=== PATIENT | female | born 1985 | race Caucasian/White ===

== ENCOUNTER 2017-03-24 08:15 | Emergency (ER) | payer MEDICAID ==
[2017-03-24 08:52] VITALS: BP 119/83; PULSE 93; RESP 18; TEMP 98.1; O2SAT 96
--- NOTE | 2017-03-24 09:24 | UCPHY ---
H & P Time Seen by Provider: 03/24/17 09:13 Patient Type: Established HPI/ROS: Patient has sinus pressure in the maxillary region associated with nasal congestion, postnasal drip, and sneezing. She had onset of mild seasonal allergies symptoms with rhinitis last week and then since Wednesday-over the past 3 days she has developed the maxillary sinus pressure associated with this 5/10 intensity. She has slight worsening of her maxillary discomfort when she bends forward. No other exacerbating factors noted. ROS: No fevers or chills. No other constitutional symptoms. HEENT: No sore throat. No ear pain. No other complaints. Pulmonary: Mild occasional dry cough over the past 24 hours. No wheezing or shortness of breath. Skin: No rash. Neuro: No confusion. 7 point ROS is otherwise negative. Past Medical/Surgical History: Seasonal allergies Mild asthma Smoking Status: Never smoked Physical Exam: Physical Exam Vital signs are normal. General: No acute distress HEENT: Nose: Clear discharge bilaterally. No significant swelling of the turbinates. There is no purulent discharge. Mild bilateral maxillary sinus tenderness to percussion. Ears: External canals and tympanic membranes are clear with no erythema or abnormal findings bilaterally. Oropharynx: No erythema or exudates. No dysphonia. No drooling or stridor. Eyes: Pupils equal and react to light. Extraocular motions are intact. Neck: Supple with no meningismus. No lymphadenopathy Lungs: Clear to auscultation bilaterally with no rales, rhonchi or wheeze. No respiratory distress. Cardiac: Regular rate and rhythm with no murmur gallop or rub Skin: No rash or pallor. Neuro: Alert with no focal deficits noted. Initial differential diagnosis: Seasonal allergies, viral URI, rhinosinusitis, doubt bacterial sinusitis Constitutional: Initial Vital Signs Temperature (C) 36.7 C 03/24/17 08:25 Heart Rate 93 03/24/17 08:25 Respiratory Rate 18 03/24/17 08:25 Blood Pressure 119/83 H 03/24/17 08:25 O2 Sat (%) 96 03/24/17 08:25 O2 Delivery Mode Room Air Allergies/Adverse Reactions: aspirin Allergy (Verified 03/24/17 08:32) codeine Allergy (Verified 03/24/17 08:32) Home Medications: Medication Instructions Recorded Fluticasone Nasal [Flonase Nasal 2 sprays NASAL DAILY #1 mdi 03/24/17 [place]] Loratadine 03/24/17 Medical Decision Making ED Course/Re-evaluation: I discussed seasonal allergies and rhinosinusitis this patient. She appears clinically well without evidence of RUBBER ENGRAVER infection other concerning findings. Although she has history of asthma she has absolutely clear lungs currently with no evidence of lower respiratory infection, bronchospasm or other Departure - Departure Disposition: Home, Routine, Self-Care Clinical Impression: Acute rhinosinusitis Seasonal allergies Qualifiers: Allergic rhinitis trigger: unspecified Qualified Code(s): J30.2 - Other seasonal allergic rhinitis Condition: Good Instructions: Rhinosinusitis (ED) Additional Instructions: Diagnosis: Rhinosinusitis 2. Seasonal allergies Plan: Humidifier Flonase steroid nasal spray Afrin nasal spray for 2 days in addition if needed and stop the Afrin but continue Flonase Continue antihistamines Ibuprofen-400 mg per 6 hours as needed for swelling and pain Guaifenesin [id number] Return if he develops fevers or significant worsening of symptoms despite the treatment plan. Follow up with primary care physician for any ongoing symptoms. Referrals: Courtney Shrestha CNP [Primary Care Provider] - As per Instructions Prescriptions: Fluticasone Nasal [Flonase Nasal Many] 2 sprays NASAL DAILY #1 mdi - PQRS PQRS Measurement: NA
== END 2017-03-24 09:34 | disposition home or self-care (01) ==
LOC: CED 08:15
DX: J01.90 Acute sinusitis, unspecified (principal); J30.2 Other seasonal allergic rhinitis
CPT/HCPCS: 99214-PO; G0463-PO

== ENCOUNTER 2017-05-19 17:35 | Observation (INO) | payer MEDICAID ==
--- NOTE | 2017-05-19 17:53 | CPEKG ---
Heart Rate: 87 RR Interval: 690 P-R Interval: 128 QRSD Interval: 84 QT Interval: 340 QTC Interval: 409 P [place]: 83 QRS [place]: 58 T Wave [place]: 39 EKG Severity - BORDERLINE ECG - EKG Impression: SINUS RHYTHM EKG Impression: BORDERLINE T ABNORMALITIES, ANTERIOR LEADS Electronically Signed By: Loy Bueno 19-May-2017 18:31:13
[2017-05-19] MEDS ORDERED: MAG HYDROX/AL HYDROX/SIMETH 30 ML UDCUP PO ONE (18:07)
[2017-05-19] MEDS ORDERED: HYOSCYAMINE SULFATE 0.125 MG TAB PO ONE (18:07)
[2017-05-19 18:09] LABS: % IMMATURE GRANULYOCYTES 0.3 % (0.0-1.1); ABSOLUTE IMMATURE GRANULOCYTES 0.03 10^3/uL (0.00-0.10); ADD DIFF? NO; ADD MORPH? NO; ADD SCAN? NO; ATYPICAL LYMPHOCYTE FLAG 10 (0-99); FRAGMENT RBC FLAG 0 (0-99); HEMATOCRIT 41.6 % (38.0-47.0); HEMOGLOBIN 14.4 g/dL (12.6-16.3); LEFT SHIFT FLG 0 (0-99); LIPEMIA HEMOLYSIS FLAG 90 (0-99); MEAN CELL HEMOGLOBIN 29.7 pg (27.9-34.1); MEAN CELL HEMOGLOBIN CONCENTR. 34.6 g/dL (32.4-36.7); MEAN CELL VOLUME 85.8 fL (81.5-99.8); MEAN PLATELET VOLUME 9.4 fL (8.7-11.7); PLATELET CLUMPS FLAG 0 (0-99); PLATELET COUNT 286 10^3/uL (150-400); RED BLOOD CELL COUNT 4.85 10^6/uL (4.18-5.33); RED CELL DISTRIBUTION WIDTH 12.7 % (11.5-15.2)
[2017-05-19 18:18] LABS: INR 1.15 (0.83-1.16); PROTIME(PATIENT) 14.4 SEC (12.0-15.0)
[2017-05-19 18:19] LABS: APTT 27.2 SEC (23.0-38.0)
[2017-05-19 18:20] LABS: ANION GAP 18 mEq/L (8-16); CALCIUM 9.2 mg/dL (8.5-10.4); CARBON DIOXIDE 20 mEq/l (22-31); CHLORIDE 103 mEq/L (97-110); CREATININE 0.7 mg/dL (0.6-1.0); GLOMERULAR FILTRATION RATE > 60; GLUCOSE 84 mg/dL (70-100); POTASSIUM 3.5 mEq/L (3.5-5.2); SODIUM 141 mEq/L (134-144)
--- NOTE | 2017-05-19 18:26 | EDPHY ---
H & P Stated Complaint: chest pain Time Seen by Provider: 05/19/17 17:54 HPI/ROS: This patient reports chest pain that started last night around 5:30 p.m.. She describes the location as substernal and the nature the pain as tightness and aching. She thought it might be acid reflux last night and she reports a restless night of sleep with intermittent discomfort that would last for about 5 minutes at a time in the chest. She also had some brief left arm tingling intermittently and mild dyspnea. She felt somewhat improved this morning but around mid day today she had recurrence of the chest pain again lasting for about 5 minutes at a time with peak intensity of 6/10. He does radiate to her left neck and shoulder today. On arrival it is 3/10 to 5/10. She tried her asthma albuterol inhaler thinking she might be having an asthma exacerbation and had no relief of the chest discomfort with that. She also relates that is not feel like any asthma exacerbations she has had in the past. She does note a pleuritic component that the pain worsens with a deep breath becomes more sharp in nature. She does not appreciate any positional component to the discomfort in terms of exacerbating or alleviating factors. She has persistent mild dyspnea today.She reports associated calf pain bilaterally "like a got off the stair master but have not been ". The calf pain is been present for the past 2 days She states this is an ache in the left leg more than the right. ROS: Constitutional: She reports mild fatigue. No fevers. HEENT: She has seasonal allergies for common for her that are mild currently. No other HEENT complaints. No URIs over the past month. Pulmonary: No cough. No respiratory distress. Cardiovascular: No heart palpitations. No lightheadedness. Otherwise negative besides with mentioned in HPI GI: She has some nausea since the onset of her symptoms but no vomiting. She also reports mild anorexia. She did not have lunch due to this. : No urinary symptoms. Last menstrual. Normal timing. Integumentary: No skin rash Endocrine: No symptoms Neuro: Some intermittent tingling left arm. No other numbness tingling or focal weakness. No headache. Complete ROS is otherwise negative. Source: Patient Exam Limitations: No limitations - Personal History LMP (Females 10-55): Unknown Current Tetanus/Diphtheria Vaccine: Yes Current Tetanus Diphtheria and Acellular Pertussis (TDAP): Yes - Medical/Surgical History Hx Asthma: Yes Hx Chronic Respiratory Disease: No Hx Diabetes: No Hx Cardiac Disease: No Hx Renal Disease: No Hx Cirrhosis: No Hx Alcoholism: No Hx HIV/AIDS: No Hx Splenectomy or Spleen Trauma: No Other PMH: ASTHMA, acid reflux, basal cell sarcoma - Family History Significant Family History: No pertinent family hx - Social History Smoking Status: Never smoked Alcohol Use: Rarely Drug Use: None Additional Social History: 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 - Physical Exam Exam: General Appearance: Alert, no distress. Eyes: Pupils equal and round no pallor or injection. ENT, Mouth: Mucous membranes moist. Respiratory: There are no retractions, lungs are clear to auscultation. She has mild anterior chest wall tenderness Left parasternal location.but this does not entirely reproduces her symptoms. Cardiovascular: Regular rate and rhythm No murmur gallop or rub is appreciated. She does have mild left calf more than right calf tenderness bilaterally but no swelling. 2+ dorsalis pedis and posterior tibialis pulses are preserved bilaterally. Gastrointestinal: Abdomen is soft and nontender, no masses, bowel sounds normal. Neurological: GCS 15 with no focal sensory or motor deficits. Skin: Warm and dry, no rashes. Musculoskeletal: Neck is supple nontender. Extremities are symmetrical, full range of motion. Psychiatric: Mild anxiety but otherwise mood and affect are normal. DIFFERENTIAL DIAGNOSIS: After history and physical exam differential diagnosis was considered for GERD with esophageal spasm, PE, pericarditis, pneumonia, pleurisy, pneumothorax, myocarditis, asthma exacerbation with viral bronchitis Constitutional: Initial Vital Signs Temperature (C) 36.9 C 05/19/17 18:00 Heart Rate 99 05/19/17 18:00 Respiratory Rate 24 H 05/19/17 18:00 Blood Pressure 119/81 H 05/19/17 18:00 O2 Sat (%) 98 05/19/17 18:00 O2 Delivery Mode Room Air Allergies/Adverse Reactions: aspirin Allergy (Verified 03/24/17 08:32) codeine Allergy (Verified 03/24/17 08:32) Home Medications: Medication Instructions Recorded Fluticasone Nasal [Flonase Nasal 2 sprays NASAL DAILY #1 mdi 03/24/17 [place]] Loratadine 03/24/17 Albuterol 05/19/17 Medical Decision Making - Diagnostics EKG Interpretation: 12 lead EKG performed shortly after arrival indication chest pain rule out evidence of right heart strain or other Performed at 5:51 p.m. Sinus rhythm at 87 Intervals: Normal throughout [place]: Normal throughout ST segments notable for mild ST depression in V3 somewhat in the lateral leads as well. Overall assessment: Normal sinus rhythm with borderline anterior T-wave abnormalities. Cannot rule out ischemia, myocarditis or other abnormalities. Please refer to trace master for complete read. Repeat EKG performed at 7:22 p.m. indication persistent chest pain, rule out interval change Sinus rhythm at 86 Intervals: Normal throughout [place]: Normal throughout ST segments: Patient with persistent anterolateral T-wave abnormalities - OVerall assessment: normal sinus rhythm with persistent anterolateral T-wave abnormalitiescannot rule out pericarditis or ischemia verses albuterol affect / medication effect Imaging Results: Imaging Impressions Chest X-Ray 05/19/17 18:34 Impression: Query mild airways disease with no superimposed acute abnormality identified. Chest/Thorax CTA 05/19/17 19:38 Impression: 1. Normal CT angiogram of the chest. Findings discussed with Loy Bueno M.D. At 20:32 hour, 05/19/2017. I also reviewed the CT angiogram appreciate no obvious abnormalities. Discuss the CT with Dr. Kline -radiologist to officially read the CT angio. Chest x-ray: I read this as mild airway disease otherwise normal. Imaging: Discussed imaging studies w/ director talent Radiologist, I viewed and interpreted images myself ED Course/Re-evaluation: Given her aspirin allergy history of asthma, we held on aspirin. I will hold initially on Plavix as well given her young age and lack of risk factors to suggest coronary disease. She is given a GI cocktail. Her peak flow is 300. She believes her baseline peak flows typically 350. Her predicted peak flow would be 475. given her EKG is mildly abnormal, will hold on further nebs until her troponin returns. Patient is treated with a DuoNeb without improvement in her dyspnea or chest pain. I spoke with Andrea Barroso-home delivery driver on-call about her ongoing symptoms at 7: 40 p.m.. The patient has persistent 5/10 pain, diaphoresis with pain radiating to her back and repeat EKG shows persistent anterior abnormalities. Given these findings will proceed with CT angio chest to evaluate for potential pericardial effusion, aortic dissection or other abnormalities. The patient declines any further analgesia at this time I discussed the patient's normal appearing CT angio with her. She still has persistent 5/10 discomfort, fatigue, nausea and dyspnea. She reports that her pain still radiates to her back. Given her ongoing symptoms as per discussion with Dr. Barroso we will admit her to [facility] for observation further treatment and echocardiogram in the morning. I spoke with Dr. Barroso again after the normal CT angio chest and also spoke with our hospitalist Dr. Sanchez accepts patient for transfer to PCU with plan for serial troponins, echocardiogram in the morning, neb treatments for asthma if needed. Patient is treated with another 0.5 mg dose of IV Ativan for anxiety and as 0.2 mg IV dose of Dilaudid. Xopenex neb is administered. Counseled regarding plan for admission. Patient is agreeable to plan. At 2130 the patient reports mild improvement of her chest pain with Dilaudid. She still has a a pleuritic type pain with a deep breath and still has mild dyspnea and feeling of generalized weakness. Her systolic pressure remains 85- 90. He review of a previous visit reveal blood pressure is around 100-105. Patient is given at Solu-Medrol dose 125 mg IV for asthma and possible pleurisy at 9:35 a.m.. At 9:40 p.m. EMS is here, report is given, her repeat peak flow remains 300. Discussion: Patient with chest pain, fatigue, mild lightheadedness, no wheezing or hypoxia but mildly low peak flow with a negative initial workup that ruled out PE, pneumonia, aortic dissection, pericardial effusion OH. this patient may simply have pleurisy with a background of mild stable asthma, but with an abnormal EKG and mild hypotension she warrants admission for further workup and evaluation to rule out structural cardiac abnormalities, infectious etiology or other. - Data Points Laboratory Results: Laboratory Results 05/19/17 17:50 05/19/17 17:50 05/19/17 05/19/17 05/19/17 17:50 17:50 17:50 WBC RBC Hgb Hct 41.6 % % (38.0-47.0) MCV MCH MCHC RDW Plt Count MPV Neut % (Auto) Lymph % (Auto) [place] % (Auto) Eos % (Auto) Baso % (Auto) Nucleat RBC Rel Count Absolute Neuts (auto) Absolute Lymphs (auto) Absolute Monos (auto) Absolute Eos (auto) Absolute Basos (auto) Absolute Nucleated RBC Immature Gran % Immature Gran # ESR 8 MM/HR MM/HR (0-20) PT INR APTT D-Dimer Sodium 141 mEq/L mEq/L (134-144) Potassium 3.5 mEq/L mEq/L (3.5-5.2) Chloride 103 mEq/L mEq/L (97-110) Carbon Dioxide 20 mEq/l L mEq/l (22-31) Anion Gap 18 mEq/L H mEq/L (8-16) BUN 15 mg/dL mg/dL (7-23) Creatinine 0.7 mg/dL mg/dL (0.6-1.0) Estimated GFR > 60 Glucose 84 mg/dL mg/dL (70-100) Calcium 9.2 mg/dL mg/dL (8.5-10.4) Troponin I < 0.012 ng/mL ng/mL (0-0.034) NT-Pro-B Natriuret Pep 54 pg/mL pg/mL (0-125) 05/19/17 05/19/17 17:50 17:50 WBC 10.88 10^3/uL H 10^3/uL (3.80-9.50) RBC 4.85 10^6/uL 10^6/uL (4.18-5.33) Hgb 14.4 g/dL g/dL (12.6-16.3) Hct 41.6 % % (38.0-47.0) MCV 85.8 fL fL (81.5-99.8) MCH 29.7 pg pg (27.9-34.1) MCHC 34.6 g/dL g/dL (32.4-36.7) RDW 12.7 % % (11.5-15.2) Plt Count 286 10^3/uL 10^3/uL (150-400) MPV 9.4 fL fL (8.7-11.7) Neut % (Auto) 70.0 % % (39.3-74.2) Lymph % (Auto) 24.1 % % (15.0-45.0) Monona % (Auto) 4.9 % % (4.5-13.0) Eos % (Auto) 0.3 % L % (0.6-7.6) Baso % (Auto) 0.4 % % (0.3-1.7) Nucleat RBC Rel Count 0.0 % % (0.0-0.2) Absolute Neuts (auto) 7.63 10^3/uL H 10^3/uL (1.70-6.50) Absolute Lymphs (auto) 2.62 10^3/uL 10^3/uL (1.00-3.00) Absolute Monos (auto) 0.53 10^3/uL 10^3/uL (0.30-0.80) Absolute Eos (auto) 0.03 10^3/uL 10^3/uL (0.03-0.40) Absolute Basos (auto) 0.04 10^3/uL 10^3/uL (0.02-0.10) Absolute Nucleated RBC 0.00 10^3/uL 10^3/uL (0-0.01) Immature Gran % 0.3 % % (0.0-1.1) Immature Gran # 0.03 10^3/uL 10^3/uL (0.00-0.10) ESR PT 14.4 SEC SEC (12.0-15.0) INR 1.15 (0.83-1.16) APTT 27.2 SEC SEC (23.0-38.0) D-Dimer < 0.27 ug/mLFEU ug/mLFEU (0.00-0.50) Sodium Potassium Chloride Carbon Dioxide Anion Gap BUN Creatinine Estimated GFR Glucose Calcium Troponin I NT-Pro-B Natriuret Pep Medications Given: Discontinued Medications Acetaminophen (Tylenol) 975 mg PO EDNOW ONE Stop: 05/19/17 18:54 Last Admin: 05/19/17 19:08 Dose: 975 mg Al Hydroxide/Mg Hydroxide (Maalox Susp) 30 ml PO EDNOW ONE Stop: 05/19/17 18:08 Last Admin: 05/19/17 18:20 Dose: 30 ml Albuterol/Ipratropium (Duoneb) 3 ml IH EDNOW ONE Stop: 05/19/17 18:52 Last Admin: 05/19/17 18:59 Dose: 3 ml Clopidogrel Bisulfate (Plavix) 75 mg PO EDNOW ONE Stop: 05/19/17 19:31 Last Admin: 05/19/17 19:40 Dose: 75 mg Hydromorphone HCl (Dilaudid) 0.2 mg IVP EDNOW ONE Stop: 05/19/17 20:49 Last Admin: 05/19/17 21:09 Dose: 0.2 mg Hyoscyamine Sulfate (Levsin, Hyomax-Sl) 0.125 mg PO EDNOW ONE Stop: 05/19/17 18:08 Last Admin: 05/19/17 18:20 Dose: 0.125 mg Sodium Chloride (Ns) 1,000 mls @ 0 mls/hr IV ONCE ONE; Wide Open PRN Reason: Protocol Stop: 05/19/17 18:34 Last Admin: 05/19/17 18:43 Dose: 1,000 mls Sodium Chloride (Ns) 1,000 mls @ 3,000 mls/hr IV ONCE ONE Stop: 05/19/17 19:52 Last Admin: 05/19/17 19:36 Dose: 1,000 mls Levalbuterol (Xopenex 1.25mg Neb) 1.25 mg IH EDNOW ONE Stop: 05/19/17 20:35 Last Admin: 05/19/17 21:10 Dose: 1.25 mg Lorazepam (Ativan Injection) 0.5 mg IVP EDNOW ONE Stop: 05/19/17 18:52 Last Admin: 05/19/17 19:00 Dose: 0.5 mg Lorazepam (Ativan Injection) 0.5 mg IVP EDNOW ONE Stop: 05/19/17 20:49 Last Admin: 05/19/17 21:10 Dose: 0.5 mg Departure - Departure Disposition: [facility] Inpatient Acute Clinical Impression: EKG abnormality Chest pain Qualifiers: Chest pain type: precordial pain Qualified Code(s): R07.2 - Precordial pain Condition: Good
[2017-05-19 18:33] LABS: TROPONIN I < 0.012 ng/mL (0-0.034)
[2017-05-19] MEDS ORDERED: NS 1,000 ML IV ONE ×2 (18:33→19:33)
[2017-05-19] MEDS ORDERED: LORazepam 2 MG/ML INJ IVP ONE ×2 (18:51→20:48)
[2017-05-19] MEDS ORDERED: IPRATROPIUM/ALBUTEROL 3 ML DEYVIAL IH ONE (18:51)
[2017-05-19] MEDS ORDERED: ACETAMINOPHEN 325 MG TAB PO ONE (18:53)
[2017-05-19 18:56] LABS: HEMATOCRIT 41.6 % (38.0-47.0)
[2017-05-19] MEDS ORDERED: CLOPIDOGREL BISULFATE 75 MG TAB PO ONE (19:30)
[2017-05-19] MEDS ORDERED: IOPAMIDOL (ISOVUE 370) 100 ML BTL IV ONE (19:44)
[2017-05-19] MEDS ORDERED: LEVALBUTEROL 1.25 MG/3 ML DEYVIAL IH ONE (20:34)
[2017-05-19] MEDS ORDERED: HYDROmorphONE/DILAUDID 1 MG/ML SYR IVP ONE (20:48)
[2017-05-19] MEDS ORDERED: methylPREDNISolone SOD SUCC 125 MG/2 ML VIAL IVP ONE (21:32)
[2017-05-19] MEDS ORDERED: ONDANSETRON 4 MG/2 ML VIAL IVP ONE (21:35)
[2017-05-19] MEDS ORDERED: methylPREDNISolone SOD SUCC 125 MG/2 ML VIAL ONE (21:37)
[2017-05-19] MEDS ORDERED: PROMETHAZINE HCL 25 MG/ML INJ IVP PRN (22:27)
[2017-05-19] MEDS ORDERED: ACETAMINOPHEN 325 MG TAB PO PRN (22:27)
[2017-05-19] MEDS ORDERED: IPRATROPIUM/ALBUTEROL 3 ML DEYVIAL IH PRN (22:27)
[2017-05-19] MEDS ORDERED: ONDANSETRON 4 MG/2 ML VIAL IVP PRN (22:27)
[2017-05-19] MEDS ORDERED: KETOROLAC 30 MG/1 ML SDV IVP PRN (22:27)
[2017-05-19 23:08] VITALS: O2SAT 95
[2017-05-19] MEDS ORDERED: NS 1,000 ML IV SCH (23:30)
--- NOTE | 2017-05-20 00:54 | GHP ---
[f rep st] HISTORY AND PHYSICAL DATE OF ADMISSION: 05/19/2017 CHIEF COMPLAINT: Pleuritic chest pain. HISTORY: The patient is a 32-year-old female, who comes in with pleuritic chest pain and shortness of breath. This pain is fluctuating, comes and goes, left-sided pleuritic, radiating to her back. She is also short of breath. She has no fever, cough, or congestion. She feels like her arms and l egs are numb and tingling. She is very fatigued, and she has been unable to sleep for 2 days. She has nausea, but no vomiting. She denies any significant myalgias or joint pains. PAST MEDICAL HISTORY: 1. Asthma. 2. Basal cell, status post surgical resection. MEDICATIONS: Please see computer record for full detailed list. ALLERGIES: Aspirin, which causes hives, and codeine. SOCIAL HISTORY: No smoking. No alcohol. She lives with her boyfriend. She works as a [employer] project. REVIEW OF SYSTEMS: Complete review of systems obtained. Review of systems is negative regarding co nstitutional, HEENT, GI, pulmonary, cardiovascular, , hematology, skin, musculoskeletal, endocrine , psych, except for positives and negatives as noted in HPI. FAMILY HISTORY: Her father of melanoma. Her mother is alive and healthy. There is no other s ignificant family history. PHYSICAL EXAMINATION: GENERAL: Well-developed, well-nourished female, in no acute distress. VITAL SIGNS: Temperature is 37.1, pulse 78, respirations 26, blood pressure 90/54, saturating 97% on rosy m air. EYES: Normal conjunctivae. Pupils are equal, round, reactive to light. ENT: Normal ears and nose. Hearing intact. Normal lips and teeth. Oropharynx moist. NECK: Trachea midline. No t hyromegaly. CHEST: Normal respiratory effort. LUNGS: Clear to auscultation bilaterally. CARDIOV ASCULAR: Regular rate and rhythm. No murmur. No lower extremity edema. ABDOMEN: Soft. Nontende r. No hepatosplenomegaly. SKIN: Warm, dry, intact. No rash. MUSCULOSKELETAL: No cyanosis or cl ubbing. Strength 5/5 upper and lower extremities. NEUROLOGIC: Cranial nerves intact. Normal sens ation to light touch. PSYCH: Alert and oriented x3. Normal mood and affect. Normal judgment. No rmal insight. Normal memory. LABORATORY DATA: White count 10.88, hematocrit 41.6, platelets 286. Sodium 141, potassium 3.5, chl oride 103, bicarb 20, BUN 15, creatinine 0.7, glucose 84. Troponins negative. BNP is 54. D-dimer is negative. IMAGING DATA: CT angiogram of the chest is negative for PE or dissection. EKG, viewed by me, my pe rsonal interpretation is normal sinus rhythm. No ST or T-wave changes. ASSESSMENT/PLAN: 1. Pleuritic chest pain and shortness of breath. CT angiogram is negative for PE. I doubt coronar y ischemia. She does not appear to be exacerbating her asthma. My suspicion is this is a viral inf ection with associated pleurisy. We will also evaluate for possible pericarditis. Will check an EK G and echocardiogram in the morning. Will check testing as available for viral illness. N. 2. Asthma. This is stable without exacerbation. Continue nebulizers as needed. CODE STATUS: Full. ADMISSION STATUS: Will admit to observation. Anticipate discharge home tomorrow. DEEP VEIN THROMBOSIS PROPHYLAXIS: She is low risk. We will ambulate early. No pharmacologic proph ylaxis at this time. /[id number]/MODL
[2017-05-20 05:48] LABS: % IMMATURE GRANULYOCYTES 0.4 % (0.0-1.1); ABSOLUTE IMMATURE GRANULOCYTES 0.02 10^3/uL (0.00-0.10); ADD DIFF? NO; ADD MORPH? NO; ADD SCAN? NO; ATYPICAL LYMPHOCYTE FLAG 0 (0-99); FRAGMENT RBC FLAG 0 (0-99); HEMOGLOBIN 11.9 g/dL (12.6-16.3); LEFT SHIFT FLG 10 (0-99); LIPEMIA HEMOLYSIS FLAG 80 (0-99); MEAN CELL HEMOGLOBIN 29.5 pg (27.9-34.1); MEAN CELL HEMOGLOBIN CONCENTR. 33.1 g/dL (32.4-36.7); MEAN CELL VOLUME 89.3 fL (81.5-99.8); MEAN PLATELET VOLUME 9.5 fL (8.7-11.7); PLATELET CLUMPS FLAG 0 (0-99); PLATELET COUNT 203 10^3/uL (150-400); RED BLOOD CELL COUNT 4.03 10^6/uL (4.18-5.33); RED CELL DISTRIBUTION WIDTH 12.8 % (11.5-15.2)
[2017-05-20 06:03] LABS: ALANINE AMINOTRANSFERASE 20 IU/L (9-52); ALBUMIN 3.4 g/dL (3.5-5.0); ALKALINE PHOSPHATASE 41 IU/L (38-126); ANION GAP 9 mEq/L (8-16); ASPARTATE AMINOTRANSFERASE 14 IU/L (14-46); BILIRUBIN,TOTAL 0.8 mg/dL (0.1-1.4); BILIRUBIN-CONJUGATED 0.3 mg/dL (0.0-0.5); BILIRUBIN-UNCONJUGATED 0.5 mg/dL (0.0-1.1); CALCIUM 8.2 mg/dL (8.5-10.4); CARBON DIOXIDE 19 mEq/l (22-31); CHLORIDE 111 mEq/L (97-110); CREATININE 0.6 mg/dL (0.6-1.0); GLOMERULAR FILTRATION RATE > 60; GLUCOSE 136 mg/dL (70-100); POTASSIUM 4.6 mEq/L (3.5-5.2); SODIUM 139 mEq/L (134-144); TOTAL PROTEIN 5.7 g/dL (6.3-8.2)
[2017-05-20 06:14] LABS: TROPONIN I < 0.012 ng/mL (0-0.034)
--- NOTE | 2017-05-20 07:39 | CPEKG ---
Heart Rate: 86 RR Interval: 698 P-R Interval: 132 QRSD Interval: 88 QT Interval: 388 QTC Interval: 464 P [place]: 89 QRS [place]: 61 T Wave [place]: 10 EKG Severity - BORDERLINE ECG - EKG Impression: SINUS RHYTHM EKG Impression: BORDERLINE T ABNORMALITIES, ANTERIOR LEADS Electronically Signed For: Loy Bueno 20-May-2017 07:39:53
--- NOTE | 2017-05-20 09:06 | CPEKG ---
Heart Rate: 62 RR Interval: 968 P-R Interval: 152 QRSD Interval: 92 QT Interval: 436 QTC Interval: 443 P [place]: 26 QRS [place]: 82 T Wave [place]: 69 EKG Severity - ABNORMAL ECG - EKG Impression: SINUS ARRHYTHMIA, RATE 55-66 EKG Impression: BORDERLINE T ABNORMALITIES, ANT-LAT LEADS EKG Impression: Short episode of atrial tachycardia with aberrancy Electronically Signed By: Michael Delgado 20-May-2017 10:48:27
[2017-05-20] MEDS ORDERED: HYDROCODONE/APAP 5/325 TAB PO PRN (09:31)
[2017-05-20] MEDS ORDERED: ALBUTEROL 60 PUFFS/8 GM MDI IH PRN (09:31)
--- NOTE | 2017-05-20 11:56 | ECHO ---
[id number] + + [address] : : [place] [address] : : [phone] + + Adult Echocardiographic Report + + :Name: BRII CURTIS CStudy Date: 05/20/2017 07:54 AM : : Hospital Admission Number: [id number] Loc ation: 201: :: 1985 Gender: Female Height: 62 in : :Age: 32 yrs Race: WH Weight: 111 lb : :Reason For Study: Pleuritic chest pain and SOB : : BSA: 1.5 me ters2 : + + MMode/2D Measurements \T\ Calculations IVSd: 0.37 cm LVIDd: 4.3 cm FS: 49.7 % Ao root diam: LVPWd: 0.58 cm LVIDs: 2.2 cm EDV(Teich): 2.7 cm 84.1 ml LA dimension: ESV(Teich): 3.0 cm 15.8 ml EF(Teich): 81.3 % LVLd ap4: 8.0 cm SV(MOD-sp4): EDV(MOD-sp4): 47.0 ml 63.0 ml LVLs ap4: 6.3 cm ESV(MOD-sp4): 16.0 ml EF(MOD-sp4): 74.6 % Normal Measurement Values: + + :LVIDd (3.5-5.7cm) IVSd (0.6-1.1cm) LVPWd (0.6-1.1cm) Aortic Root (2.0-3.7cm)Left Atrium (1.5-4.0cm): :LV Vol(d) (76-115ml) LV Vol(s) (29-48ml) Ejec Fraction (50-65%)PV Bryan (0.6- 1.2m/s) TV Bryan (0.4-1.0m/s) : :MV E Bryan (0.8-1.0m/s)MV A Bryan (0.3-1.0m/s)LVOT Bryan (0.7-1.2m/s) Asc Ao Bryan ( 0.9-1.8m/s) : + + Doppler Measurements \T\ Calculations MV E max bryan: 99.2 cm/sec Ao V2 max: 112.7 cm/sec TR max bryan: 183.2 cm/sec MV A max bryan: 57.8 cm/sec Ao max P.1 mmHg TR max P.4 mmHg MV E/A: 1.7 RAP systole: 5.0 mmHg RVSP(TR): 18.4 mmHg Left Ventricle The left ventricle is normal in size. There is normal left ventricular wall thickness. Left ventricular systolic function is normal. Ejection Fraction = 60-65%. No regional wall motion abnormalities noted. Right Ventricle The right ventricle is normal in size and function. Atria The left atrial size is normal. Right atrial size is normal. The interatrial septum is intact with no evidence for an atrial septal defect. Mitral Valve The mitral valve is normal in structure and function. There is no evidence of mitral valve prolapse. There is no mitral valve stenosis. Tricuspid Valve Normal tricuspid valve. There is trace tricuspid regurgitation. Aortic Valve The aortic valve is trileaflet. The aortic valve opens well. There is no aortic stenosis. There is no aortic insufficiency. Pulmonic Valve The pulmonic valve is normal in structure and function. There is no pulmonic valvular regurgitation. Great Vessels The aortic root is normal size. Pericardium/Pleural There is no pericardial effusion. Conclusion A complete two-dimensional transthoracic echocardiogram was performed (2D, M-mode, Doppler and color flow Doppler). Left ventricular systolic function is normal. Ejection Fraction = 60-65%. There is trace tricuspid regurgitation. Final Reading Physician: Genesis Nieto signed on 05/20/2017 11:55 AM Ordering Physician: Christina Wallace Performed By: Sanaz Beltran RDCS
[2017-05-20 11:57] VITALS: BP 100/55; PULSE 66; RESP 21; TEMP 97.6
--- NOTE | 2017-05-20 12:07 | HOSPPROG ---
Hospitalist Progress Note Assessment/Plan: 32 yo f w pleuritic pain. large negative workup viral pleurisy home 4 days pred see dc summary Subjective: no events tele (interp by me) Objective: Vital Signs Temp Pulse Resp BP Pulse Ox 36.4 C 66 21 H 100/55 L 95 05/20/17 11:56 05/20/17 11:56 05/20/17 11:56 05/20/17 11:56 05/20/17 11:56 Laboratory Results 05/20/17 05:38 05/20/17 05:38 05/19/17 05/20/17 05/21/17 05:59 05:59 05:59 Intake Total 2865 240 Balance 2865 240 PT 14.4 SEC (12.0-15.0) 05/19/17 17:50 INR 1.15 (0.83-1.16) 05/19/17 17:50 - Physical Exam Constitutional: no apparent distress, appears nourished Eyes: PERRL, anicteric sclera Ears, Nose, Mouth, Throat: moist mucous membranes, hearing normal Cardiovascular: regular rate and rhythym, no murmur, rub, or gallop Respiratory: no respiratory distress, no rales or rhonchi Gastrointestinal: normoactive bowel sounds, soft, non-tender abdomen Genitourinary: no bladder fullness, No new in urethra Skin: warm, normal color Neurologic: AAOx3, sensation intact bilaterally Psychiatric: interacting appropriately, not anxious ICD10 Worksheet Patient Problems: Problems Problem Status Onset Chest pain Acute EKG abnormality Acute
--- NOTE | 2017-05-20 13:42 | GDS ---
[f rep st] DISCHARGE SUMMARY DISCHARGE DIAGNOSES: 1. Likely viral pleurisy. 2. History of asthma. 3. History of peptic ulcer disease. HOSPITAL COURSE: Please see admission history and physical by Dr. Christina Wallace. The patient pres ented with pleuritic pain. She had a negative CTA, negative chest x-ray, EKGs that were not consist ent with pericarditis. She received steroids and improved. She did not have an oxygen requirement. She is breathing well. She was not wheezing. She was discharged home on prednisone and Protonix. She had an echocardiogram, read is pending at the time of this dictation. /[id number]/MODL
[2017-05-21] MEDS ORDERED: MULTIVITAMINS 1 EACH TAB PO SCH (09:00)
[2017-05-21] MEDS ORDERED: NON-FORMULARY NEW DRUG (Loratadine [Loratadine] 10 MG) PO SCH (09:00)
[2017-05-21] MEDS ORDERED: Herbals/Supplements -Info Only PO SCH (09:00)
[2017-05-21] MEDS ORDERED: CETIRIZINE 10 MG TAB PO SCH (09:00)
== END 2017-05-20 12:45 | disposition home or self-care (01) ==
LOC: CED 17:35 → CEDHOLD 20:56 → F2W 22:13
PROVIDERS: ADMIT Internal Medicine; ATTEND Internal Medicine
DX: R09.1 Pleurisy (principal); J45.909 Unspecified asthma, uncomplicated
CPT/HCPCS: 71020; 71275; 93005; 93306; 96361; 96374; 96375; 96376; 99285; G0378; 80048-PO; 83690-PO; 83880-PO; 84484-PO; 85025-PO; 85378-PO; 85610-PO; 85652-PO; 85730-PO; J1170; J2060; J2550; Q9967

== ENCOUNTER 2018-06-02 17:56 | Emergency (ER) | payer MEDICAID, OTHER ==
[2018-06-02] MEDS ORDERED: fentaNYL 100 MCG/2 ML INJ IVP ONE (18:13)
[2018-06-02] MEDS ORDERED: ONDANSETRON 4 MG/2 ML VIAL IVP ONE ×2 (18:13→19:45)
[2018-06-02] MEDS ORDERED: NS 1,000 ML IV ONE ×2 (18:13→19:31)
--- NOTE | 2018-06-02 18:19 | EDPHY ---
H & P Stated Complaint: Pt. states llq/ovary pain started x1week,intermittent last noc /today increa Time Seen by Provider: 06/02/18 17:57 HPI/ROS: 33-year-old female with a prior history of ovarian cyst presents complaining of sharp stabbing severe pain in her left adnexal region . She states it has been intermittent since the beginning of her period. And initially was very similar to prior ovarian cyst she has had however today it has been dramatically worse, sharp and stabbing. No fevers or chills, positive nausea no vomiting, no diarrhea, no constipation-she states she had a normal bowel movement today. Review of systems As per HPI General no fever no chills no weakness HEENT no eye pain no eye discharge. No eye redness, no sore throat Respiratory no cough, no shortness of breath Cardiac no chest pain, no peripheral edema GI pos left abdominal pain, no diarrhea, no constipation, no nausea, no vomiting no flank pain, no hematuria, no dysuria, positive left lower adnexal/pelvic pain Musculoskeletal no myalgias, no joint pain Heme no easy bruising, no easy bleeding Endo no polyuria, no polydipsia Skin no rashes, no pruritus Neuro no syncope, no dizziness, no headaches Psych is no suicidal ideation, no homicidal ideation Source: Patient Exam Limitations: No limitations - Personal History LMP (Females 10-55): 1-7 Days Ago - Medical/Surgical History Hx Asthma: Yes Hx Chronic Respiratory Disease: No Hx Diabetes: No Hx Cardiac Disease: No Hx Renal Disease: No Hx Cirrhosis: No Hx Alcoholism: No Hx HIV/AIDS: No Hx Splenectomy or Spleen Trauma: No Other PMH: ASTHMA, acid reflux, basal cell sarcoma. Surg-none - Family History Significant Family History: No pertinent family hx - Social History Smoking Status: Never smoked Alcohol Use: None Drug Use: None - Physical Exam Exam: 33-year-old female alert and oriented in moderate distress secondary to left adnexal pain, vital signs stable, afebrile HEENT atraumatic normocephalic, extraocular muscles intact, anicteric Oropharynx negative for erythema negative exudate, tolerating her own secretions Neck supple no meningismus Lungs clear to auscultation bilaterally Heart regular rate and rhythm without murmur rub or gallop Abdomen bowel sounds quiet, non distended, positive tenderness in left adnexal pelvic area No rebound, no pulsatile mass no masses positive guarding Back no CVA tenderness, no step-offs, no spinal tenderness Extremities no cyanosis clubbing or edema Neuro alert and oriented, no focal deficits Constitutional: Initial Vital Signs Temperature (C) 36.7 C 06/02/18 18:01 Heart Rate 55 L 06/02/18 18:01 Respiratory Rate 16 06/02/18 18:01 Blood Pressure 113/76 06/02/18 18:01 O2 Sat (%) 99 06/02/18 18:01 O2 Delivery Mode Room Air Allergies/Adverse Reactions: aspirin Allergy (Verified 06/02/18 17:59) Hives codeine Allergy (Verified 06/02/18 17:59) dizzy/shaky Home Medications: Medication Instructions Recorded Loratadine 10 mg PO DAILY 03/24/17 Albuterol [Proventil Inhaler HFA 1 - 2 puffs IH DAILY PRN 05/19/17 (*)] Herbals/Supplements -Info Only 1 ea PO DAILY 05/20/17 Multivitamins [Multivitamin (*)] 1 each PO DAILY 05/20/17 Medical Decision Making - Diagnostics Imaging Results: Imaging Impressions Pelvic/Renal Ultrasound 06/02/18 18:14 Impression: Normal ultrasound pelvis. A message was left for Gwen Arrieta MD, at 06/02/2018 19:14 Abdomen/Pelvis CT 06/02/18 19:36 Impression: 1. No evidence of urinary tract calculus. 2. No significant abnormality identified within the abdomen and pelvis. 3. Mild to moderate constipation. Attention: This CT examination is specifically designed to evaluate patients who are clinically suspected of having acute obstructive uropathy. This examination does not use radiographic contrast, and as such, provides only a limited evaluation of the abdomen, pelvis and retroperitoneum. If there is further clinical suspicion for pathological conditions other than obstructive uropathy, a complete CT evaluation of the abdomen and pelvis utilizing intravenous, oral, and rectal contrast should be considered. Findings discussed with Gwen Arrieta MD at 20:29 hour, 06/02/2018. ED Course/Re-evaluation: Patient seen and evaluated for left adnexal pain Labs ordered IV normal saline 1 L ordered Ondansetron 4 mg IV push, repeated x1 Fentanyl 25 mcg IV push Patient was also given morphine 4 mg IV push Ultrasound pelvis to rule out ovarian torsion or hemorrhagic cyst ordered Ultrasound negative, no cyst no torsion no free fluid CT abdomen/pelvis Possible small amount of constipation however, no evidence of obstructive uropathy Uterus and ovaries again appear normal, no free fluid no free air CBC normal CMP normal Lactate negative Urine negative Urine negative for blood, negative for evidence of UTI Impression Left pelvic and lower abdominal pain with no certain etiology Plan Discharge home Patient does state she is feeling markedly improved Follow-up with primary care physician and/or real estate broker associate Return for vomiting fever worsening symptoms Differential Diagnosis: Differential diagnosis considered but not limited to: Left ovarian cyst, left ovarian torsion, diverticulitis, ureterolithiasis - Data Points Laboratory Results: 06/02/18 06/02/18 18:30 18:28 POC Sodium 139 mEq/L mEq/L (135-145) POC Potassium 3.2 mEq/L L mEq/L (3.3-5.0) POC Chloride 104.0 mEq/L mEq/L (97-110) POC Total CO2 24 mEq/L mEq/L (22-31) POC BUN 11 mg/dL mg/dL (7-23) POC Creatinine 0.7 mg/dL mg/dL (0.6-1.0) POC Glucose 91 mg/dL mg/dL (70-100) POC Lactic Acid Jose 0.6 mmol/L L mmol/L (0.7-2.1) POC Calcium 9.4 mg/dL mg/dL (8.5-10.4) Medications Given: Discontinued Medications Fentanyl (Sublimaze) 25 mcg IVP EDNOW ONE Stop: 06/02/18 18:14 Last Admin: 06/02/18 18:31 Dose: 25 mcg Sodium Chloride (Ns) 1,000 mls @ 0 mls/hr IV ONCE ONE PRN Reason: Wide Open Stop: 06/02/18 18:14 Last Admin: 06/02/18 18:29 Dose: 1,000 mls Sodium Chloride (Ns) 1,000 mls @ 0 mls/hr IV ONCE ONE PRN Reason: Wide Open Stop: 06/02/18 19:32 Last Admin: 06/02/18 19:41 Dose: 1,000 mls Morphine Sulfate (Morphine) 4 mg IVP EDNOW ONE Stop: 06/02/18 19:32 Last Admin: 06/02/18 19:54 Dose: Not Given Morphine Sulfate (Morphine) 4 mg IVP EDNOW ONE Stop: 06/02/18 19:38 Last Admin: 06/02/18 19:43 Dose: Not Given Morphine Sulfate (Morphine) 4 mg IVP EDNOW ONE Stop: 06/02/18 19:45 Last Admin: 06/02/18 19:47 Dose: 4 mg Ondansetron HCl (Zofran) 4 mg IVP EDNOW ONE Stop: 06/02/18 18:14 Last Admin: 06/02/18 18:29 Dose: 4 mg Ondansetron HCl (Zofran) 4 mg IVP EDNOW ONE Stop: 06/02/18 19:46 Last Admin: 06/02/18 19:48 Dose: 4 mg Oxycodone/Acetaminophen (Percocet 5/325mg Prepack#4) 1 btl TAKEHOME EDNOW ONE Stop: 06/02/18 21:12 Last Admin: 06/02/18 21:32 Dose: 1 btl Point of Care Test Results: CBC CBC Collection Date 06/02/18 CBC Collection Time 18:23 WBC 6.7 RBC 4.76 HGB 14.0 HCT 43.0 PLT 234 Neut # 3.4 Neut 51.3 LYMPH # 2.9 LYMPH 42.7 Other WBC # 0.4 Other WBC 6.0 MCV 90.3 Chemistry 06/02/18 18:28 POC Sodium 139 mEq/L mEq/L (135-145) POC Potassium 3.2 mEq/L L mEq/L (3.3-5.0) POC Chloride 104.0 mEq/L mEq/L (97-110) POC Total CO2 24 mEq/L mEq/L (22-31) POC BUN 11 mg/dL mg/dL (7-23) POC Creatinine 0.7 mg/dL mg/dL (0.6-1.0) POC Glucose 91 mg/dL mg/dL (70-100) POC Calcium 9.4 mg/dL mg/dL (8.5-10.4) Blood Gas/Lactic Acid-Venous 06/02/18 18:30 POC Lactic Acid Jose 0.6 mmol/L L mmol/L (0.7-2.1) Urine Collection Date 06/02/18 Collection Time 19:45 HCG Results Negative Urine Dip Collection Date 06/02/18 Collection Time 19:45 Specific [place] (1.002-1.030) 1.010 PH (5.0-7.5) 7.0 Leukocytes (Negative) Negative Nitrites (Negative) Negative Protein (Negative) Negative Glucose (Negative) Negative Ketones (Negative) Negative Urobilnogen (0.2-1.0 EU) 0.2 Bilirubin (Negative) Negative Blood (Negative) Negative Departure - Departure Disposition: Home, Routine, Self-Care Clinical Impression: Left lower quadrant abdominal pain of unknown etiology Condition: Good Instructions: Oxycodone/Acetaminophen (By mouth), Acute Abdominal Pain (ED), Pelvic Pain in Women (ED) Referrals: NONE *PRIMARY CARE P,. [Primary Care Provider] - As per Instructions
[2018-06-02] MEDS ORDERED: ONDANSETRON 4 MG/2 ML VIAL ONE (19:41)
[2018-06-02 19:47] VITALS: BP 100/58
[2018-06-02] MEDS ORDERED: OXYCODONE/APAP 5/325MG PREPACK#4 BTL TAKEHOME ONE (21:11)
== END 2018-06-02 21:40 | disposition home or self-care (01) ==
LOC: CED 17:56
DX: R10.32 Left lower quadrant pain (principal); J45.909 Unspecified asthma, uncomplicated
CPT/HCPCS: 74176-PO; 76856-PO; 80048-PO; 83605-PO; 96374; J2270; J2405; J3010

== ENCOUNTER 2018-12-24 15:56 | Emergency (ER) | payer OTHER ==
[2018-12-24] MEDS ORDERED: NS 1,000 ML IV ONE (16:25)
[2018-12-24] MEDS ORDERED: ONDANSETRON 4 MG/2 ML VIAL IVP ONE (16:25)
[2018-12-24] MEDS ORDERED: KETOROLAC 30 MG/1 ML SDV IVP ONE (16:25)
--- NOTE | 2018-12-24 16:31 | EDPHY ---
H & P Stated Complaint: [facility]. [facility] still with nausea and rt flank pain Time Seen by Provider: 12/24/18 16:04 HPI/ROS: CHIEF COMPLAINT: Continued flank pain, nausea, dysuria, and urinary frequency HISTORY OF PRESENT ILLNESS: This is a 33-year-old female in general good health who presents with persistent flank pain, nausea, dysuria, and urinary frequency after being diagnosed with pyelonephritis yesterday (Wednesday) at [facility]. When she was seen at urgent care she had been experiencing bilateral flank pain for 2 days. Prior to that, Wednesday through Wednesday of this week she had vomiting and diarrheal illness that ultimately resolved but left her with bilateral flank pain. She has had low-grade temperatures throughout the week. No fever today. However, she continues with nausea and is having difficulty taking her medications and eating and drinking. While at Urgent Care she received IV ceftriaxone and was started on oral Bactrim which she took last night and this morning. She was not given IV fluids. She has not taken any Tylenol. REVIEW OF SYSTEMS: A ten system review of systems was performed and is negative with the exception of the items mentioned in the HPI. Past medical history: Anxiety and depression Past surgical history: None Social history: No tobacco use. She works as an animal hospital. Dr. Julia Cha is her primary care provider. General Appearance: Alert. Vital signs reviewed. Temperature 36.7 degrees, heart rate 63, respiratory rate 16, blood pressure 101/66. Oxygen saturation 100%. Eyes: Pupils equal and round, no conjunctival injection, no discharge. Anicteric. ENT, Mouth: Mucous membranes are moist, no oropharyngeal erythema or edema. Neck: No lymphadenopathy, supple. Respiratory: Lungs are clear to auscultation; no wheezes, rales, or rhonchi. Cardiovascular: Regular rate and rhythm; no murmur, rub, or gallop. Gastrointestinal: Abdomen is soft and mildly tender in the LLQ without guarding , no masses or organomegaly, bowel sounds normal. Skin: Warm and dry, no rashes on exposed skin, normal color. Back: Nontender to palpation over the thoracolumbar spine. Mild bilateral CVAT. Extremities: No lower extremity edema, no calf tenderness or swelling. Neurological: Alert and oriented. Moving all four extremities easily and equally. Psychiatric: Flat affect. - Personal History LMP (Females 10-55): 15-21 Days Ago Current Tetanus Diphtheria and Acellular Pertussis (TDAP): Yes Tetanus Vaccine Date: 2014 - Medical/Surgical History Hx Asthma: Yes Hx Chronic Respiratory Disease: No Hx Diabetes: No Hx Cardiac Disease: No Hx Renal Disease: No Hx Cirrhosis: No Hx Alcoholism: No Hx HIV/AIDS: No Hx Splenectomy or Spleen Trauma: No Other PMH: ASTHMA, acid reflux, basal cell sarcoma. Surg-none - Social History Smoking Status: Never smoked Constitutional: Initial Vital Signs Temperature (C) 36.7 C 12/24/18 16:08 Heart Rate 63 12/24/18 16:08 Respiratory Rate 16 12/24/18 16:08 Blood Pressure 101/66 12/24/18 16:08 O2 Sat (%) 100 12/24/18 16:08 O2 Delivery Mode Room Air Allergies/Adverse Reactions: aspirin Allergy (Verified 12/24/18 16:05) Hives codeine Allergy (Verified 12/24/18 16:05) dizzy/shaky Home Medications: Medication Instructions Recorded Albuterol [Proventil Inhaler HFA 1 - 2 puffs IH DAILY PRN 05/19/17 (*)] Herbals/Supplements -Info Only 1 ea PO DAILY 05/20/17 Multivitamins [Multivitamin (*)] 1 each PO DAILY 05/20/17 Apri 28 Day Tablet 12/24/18 FLUoxetine 12/24/18 Medical Decision Making - Diagnostics Imaging Results: Imaging Impressions Abdomen/Pelvis CT 12/24/18 17:09 Impression: 1. No evidence of urinary tract calculus. 2. Mild constipation once again noted. Attention: This CT examination is specifically designed to evaluate patients who are clinically suspected of having acute obstructive uropathy. This examination does not use radiographic contrast, and as such, provides only a limited evaluation of the abdomen, pelvis and retroperitoneum. If there is further clinical suspicion for pathological conditions other than obstructive uropathy, a complete CT evaluation of the abdomen and pelvis utilizing intravenous and oral contrast should be considered. Findings discussed with Aleida Fleming M.D. at 17:47 hour, 12/24/2018. ED Course/Re-evaluation: 33-year-old female with flank pain, urgency, frequency, and dysuria following gastroenteritis earlier in the week. On the face of it, this looks like sounds like pyelonephritis. She was treated at an urgent care last night with ceftriaxone and started on Bactrim. She presents today because she is not feeling any better and because she has continued nausea, making it difficult for her to eat and drink. She is not febrile today. She has not vomited today. I was able to obtain the records from Urgent Care. Her urine last night was positive for blood with a specific gravity of 1.015. The urine was otherwise normal. It was sent for culture. Urine today is also positive for blood, no nitrites or leukocytes or bacteria. I am not convinced that this is a urinary tract infection or pyelonephritis. The nature of her pain is not suggestive of kidney stone, but the hematuria makes kidney stone a possibility. She does have both flank pain and pain extending into the left lower quadrant and groin. Her left ovary does not seem particularly tender on abdominal exam. I doubt ovarian torsion or cyst. She has not had a vaginal discharge and has no history of STD. Left-sided abdominal pain brings to mind diverticulosis/ itis but I think diverticulitis is unlikely. Blood work including CBC, chemistries, urinalysis, and test were performed. CBC is normal with a white blood cell count 5.9, and hemoglobin/ hematocrit of 14/41. test is negative. Chemistries are normal, including kidney function. Urinalysis shows trace blood and urobilinogen, otherwise normal. I realize that pyelonephritis can occur without leukocytosis but I do not think that she has pyelonephritis. It is certainly possible that she has urinary tract infection, although her urine is not suggestive of infection. She has been treated with antibiotics which could affect the urinalysis results. Her vital signs are normal in the emergency department. She received 1 L IV fluids and Zofran 4 mg. She continued to complain of nausea. We discussed possible etiologies of her symptoms. I remains somewhat concerned about kidney stone. She agreed to undergo CT scanning of the abdomen and pelvis. This study was performed and was negative for ureterolithiasis. Kidneys appear normal. Study otherwise normal with the exception of mild constipation. I reviewed these findings with the patient. She is frustrated and disappointed at not having a clear-cut diagnosis. I recommended that we try different antiemetic. However, she is choosing to return home and continue with the Zofran that she has. She will continue her Bactrim with the thought that she might have a urinary tract infection. I explained to her that Bactrim is not the best drug for an upper urinary tract infection but that it is appropriate for lower urinary tract infection. As above, I do not think that she has pyelonephritis. We discussed the danger signs that should prompt her to be re-evaluated. Differential Diagnosis: I considered a differential diagnosis that includes but is not limited to pyelonephritis, urinary tract infection, ureterolithiasis, muscle strain, gastroenteritis, and appendicitis. - Data Points Laboratory Results: 12/24/18 16:48 POC Sodium 139 mEq/L mEq/L (135-145) POC Potassium 4.0 mEq/L mEq/L (3.3-5.0) POC Chloride 104.0 mEq/L mEq/L (97-110) POC Total CO2 23 mEq/L mEq/L (22-31) POC BUN 12 mg/dL mg/dL (7-23) POC Creatinine 0.6 mg/dL mg/dL (0.6-1.0) POC Glucose 86 mg/dL mg/dL (70-100) POC Calcium 9.2 mg/dL mg/dL (8.5-10.4) Medications Given: Discontinued Medications Sodium Chloride (Ns) 1,000 mls @ 0 mls/hr IV EDNOW ONE; Wide Open PRN Reason: Protocol Stop: 12/24/18 16:26 Last Admin: 12/24/18 16:42 Dose: 1,000 mls Ketorolac Tromethamine (Toradol) 15 mg IVP EDNOW ONE Stop: 12/24/18 16:26 Last Admin: 12/24/18 16:58 Dose: Not Given Ondansetron HCl (Zofran) 4 mg IVP EDNOW ONE Stop: 12/24/18 16:26 Last Admin: 12/24/18 16:42 Dose: 4 mg Point of Care Test Results: CBC CBC Collection Date 12/24/18 CBC Collection Time 16:30 WBC 5.9 RBC 4.68 HGB 14.4 HCT 41.4 PLT 251 Neut # 3.8 Neut 65.1 LYMPH # 1.8 LYMPH 30.5 Other WBC # 0.3 Other WBC 4.4 MCV 88.5 Chemistry 12/24/18 16:48 POC Sodium 139 mEq/L mEq/L (135-145) POC Potassium 4.0 mEq/L mEq/L (3.3-5.0) POC Chloride 104.0 mEq/L mEq/L (97-110) POC Total CO2 23 mEq/L mEq/L (22-31) POC BUN 12 mg/dL mg/dL (7-23) POC Creatinine 0.6 mg/dL mg/dL (0.6-1.0) POC Glucose 86 mg/dL mg/dL (70-100) POC Calcium 9.2 mg/dL mg/dL (8.5-10.4) Urine Collection Date 12/24/18 Collection Time 14:30 HCG Results Negative Urine Dip Collection Date 12/24/18 Collection Time 14:30 Specific [place] (1.002-1.030) 1.005 PH (5.0-7.5) 7.0 Leukocytes (Negative) Negative Nitrites (Negative) Negative Protein (Negative) Negative Glucose (Negative) Negative Ketones (Negative) Negative Urobilnogen (0.2-1.0 EU) 0.2 Bilirubin (Negative) Negative Blood (Negative) Trace Departure - Departure Disposition: Home, Routine, Self-Care Clinical Impression: Urinary tract infection Qualifiers: Urinary tract infection type: acute cystitis Hematuria presence: with hematuria Qualified Code(s): N30.01 - Acute cystitis with hematuria Abdominal pain Qualifiers: Abdominal location: left lower quadrant Qualified Code(s): R10.32 - Left lower quadrant pain Condition: Good Instructions: Urinary Tract Infection in Women (ED), Acute Nausea and Vomiting (ED), Acute Abdominal Pain (ED) Additional Instructions: Please continue with the Zofran for nausea and try to stay hydrated and nourished. Follow up with Dr. Cha. If you are worse in any way--fever, unable to eat/drink/take medication because of nausea and vomiting, worsening abdominal or flank pain, any new or concerning symptoms--please be re-evaluated. As you know, it is not 100% clear what is going on. I recommend that you continue with the antibiotic for urinary tract infection. [facility] to see if they have any results on your urine culture. Since you have adverse effects with pain medication and hives with aspirin, I recommend taking tylenol, 650 mg, every four hours for pain. Do not take more than 3000 mg of tylenol in a 24 hour time period. Referrals: Julia Cha MD [Primary Care Provider] - As per Instructions
[2018-12-24 18:36] VITALS: BP 103/61
== END 2018-12-24 18:33 | disposition home or self-care (01) ==
LOC: CED 15:56
DX: N30.01 Acute cystitis with hematuria (principal); R10.32 Left lower quadrant pain; E86.9 Volume depletion, unspecified
CPT/HCPCS: 74176-PO; 80048-ER; 96361-ER; 96374-ER; J2405